=== PATIENT | female | born 1990 | race Hispanic/Latino ===

== ENCOUNTER 2018-05-29 10:26 | Emergency (ER) | payer MEDICAID, SELFPAY ==
[2018-05-29 10:55] LABS: Bilirubin Negative (Negative); Clarity CLEAR (Clear); Glucose, Urine (Dipstick) Negative (Negative); Leukocyte Small (Negative); Nitrite Negative (Negative); Protein, Urine (Dipstick) Negative (Neg-Trace); Specific Gravity, Urine 1.025 (1.002-1.036); Urobilinogen 0.2 mg/dL (0.2-1.0)
[2018-05-29 10:57] LABS: Bacteria/HPF Rare-Few HPF (None Seen); Hyaline Casts/LPF 0-3 HYALINE CAST LPF (0-3 Hyaline); Pathc Cast-AUWi Flag 0.29 (0-2.49)
[2018-05-29 11:09] LABS: #Basophils 0.1 thou/uL (0.0-0.2); #Eosinphils 0.1 thou/uL (0.0-0.7); #Lymphocytes 1.6 thou/uL (1.20-3.40); #Monocytes 0.7 thou/uL (0.11-0.59); #Neutrophils 9.6 thou/uL (1.40-6.50); %Basophils 0.5 % (0.0-1.0); %Eosinophils 0.5 % (0.0-10.0); %Lymphocytes 13.2 % (21.0-51.0); %Monocytes 5.5 % (0.0-10.0); %Neutrophils 80.4 % (42.0-75.0); Hemoglobin 13.3 g/dL (12.0-16.0); Mean Corpuscular Hemoglobin 31.6 pg (27.0-31.0); Mean Platelet Volume 8.3 fL (7.4-10.4); Platelet Count 230 thou/uL (130-400); RBC Distribution Width 11.6 % (11.5-14.5); Red Blood Cell (RBC) Count 4.21 mill/uL (4.20-5.40); White Blood Cell (WBC) Count 11.9 thou/uL (4.8-10.8)
[2018-05-29 11:12] LABS: RBC/HPF 0-3 HPF (0-3)
[2018-05-29 11:14] LABS: Blood, Urine Large (Negative)
--- NOTE | 2018-05-29 12:44 | ULT ---
ULTRASOUND PELVIC TRANSVAGINAL WITH DOPPLER: Date: 05/29/18 HISTORY: 8 weeks . Bright red vaginal bleeding. COMPARISON: None. [ TECHNIQUE: Real-time Clemons scale with color Doppler and spectral analysis of the pelvis was performed via transab dominal and transvaginal approach. FINDINGS: Uterus is retroflexed. Uterus measures 7.4 x 4.7 x 6.1 cm. Right ovary measures 2.5 x 2.2 x 1.9 cm. L eft ovary measures 2.6 x 1.7 x 1.4 cm. Prominent corpus luteum right ovary. Gestational sac is present, as well as a pole. Heart rate documented at just under 100 beats/mi nute. Small subchorionic hemorrhage. Trace free fluid. The average ultrasound age is 5 weeks/6 days, estimated date of delivery of 9. [place]-rump length is 0.21 cm. Gestational sac diameter is 1.06 cm. IMPRESSION: Single, viable intrauterine . Average ultrasound age of 5 weeks and 6 days. Estimated delive ry date is 01/23/19. Small subchorionic hemorrhage. POS: [facility]
[2018-05-31 20:01] LABS: Chlamydia by PCR Not Detected (NotDetected); GC by PCR Not Detected (NotDetected)
== END 2018-05-29 12:48 | disposition home or self-care (01) ==
LOC: ERS 10:26
DX: O20.0 Threatened abortion (principal); Z3A.08 8 weeks gestation of pregnancy
CPT/HCPCS: 76856; 81003; 81015; 84702; 85025; 86900; 86901; 87086; 87480; 87491; 87510; 87591; 87660

== ENCOUNTER 2019-05-05 23:04 | Day surgery (SDC) | payer OTHER ==
[2019-05-05 23:33] VITALS: BP 111/62; TEMP 98.4; BMI 32.6
[2019-05-05] MEDS ORDERED: hydrALAZINE 20 MG/ML VIAL SLOW IVP PRN (23:42)
--- NOTE | 2019-05-05 23:45 | PDOC.LDHP ---
Labor and Delivery H&P Chief complaint: other (N/V) HPI: Patient of Dr brandt Here for N/V, no VB 28 yo at 25 weeks with N/V. No CTX, no LOF, good FM Current gestational age (weeks): 25 (5 days) Dating criteria: last menstrual period Grav: 4 Para: 2 Current complications: none Abnormal US findings: No Current medications: pre- vitamins Previous surgical history: none Allergies/Adverse Reactions: Allergies Allergy/AdvReac Type Severity Reaction Status Date / Time No Known Allergies Allergy Unverified 05/05/19 23:24 - Physical Exam Vital signs reviewed and normal: yes General: NAD Heart: RRR Lungs: CTAB Abdomen: gravid Extremeties: no edema [place] contractions every: FHTS 140s, no CTX - Assessment N/V at 25 weeks, no SXS of labor, afebrile - Plan Plan: observation in L&D (Check CMP; IVFs, posible gastroenteritis)
[2019-05-05] MEDS ORDERED: Lactated Ringer's 1,000 ML IV SCH (23:59)
[2019-05-06 00:25] LABS: ALT (SGPT) 25 U/L (8-55); AST (SGOT) 35 U/L (5-34); Albumin 3.8 g/dL (3.5-5.0); Alkaline Phosphatase 99 U/L (40-150); Anion Gap 14 mmol/L (10-20); BUN (Urea Nitrogen) 8 mg/dL (7.0-18.7); Bilirubin, Total 0.4 mg/dL (0.2-1.2); Calc. Creatinine Clearance 169 mL/min (70-130); Calcium 8.8 mg/dL (7.8-10.44); Carbon Dioxide 19 mmol/L (22-29); Chloride 105 mmol/L (98-107); Estimated GFR-MDRD Greater than 90; Globulin 2.7 g/dL (2.4-3.5); Glucose 91 mg/dL (70-105); Potassium 3.6 mmol/L (3.5-5.1); Protein, Total 6.5 g/dL (6.0-8.3); Sodium 134 mmol/L (136-145)
== END 2019-05-06 01:00 | disposition home or self-care (01) ==
LOC: L&D/OP 23:04
PROVIDERS: ATTEND Obstetrics & Gynecology
DX: O99.89 Other specified diseases and conditions complicating pregnancy, childbirth and the puerperium (principal); R11.2 Nausea with vomiting, unspecified; Z3A.25 25 weeks gestation of pregnancy
CPT/HCPCS: 80053; 96360; 99282

== ENCOUNTER 2019-07-11 01:34 | Day surgery (SDC) | payer OTHER ==
[2019-07-11 02:01] VITALS: BP 112/59; TEMP 98.2; BMI 34.0
[2019-07-11] MEDS ORDERED: hydrALAZINE 20 MG/ML VIAL SLOW IVP PRN (02:41)
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
[2019-07-11] MEDS ORDERED: Acetaminophen 325 MG TAB PO SCH (04:30)
--- NOTE | 2019-07-11 08:15 | ULT ---
EXAM: US Biophysical Profile PROVIDED CLINICAL HISTORY: Fall COMPARISON: None FINDINGS: tone: 2/2 breathin/2 movements: 2/2 Amniotic fluid: 2/2 Total: 06/10 IMPRESSION: Normal biophysical profile.
--- NOTE | 2019-07-11 08:16 | ULT ---
PRELIMINARY REPORT/[facility]/EMERGENCY AFTER HOURS PROCEDURE: EXAM: US , Limited US Doppler Velocimetry of the Umbilical Artery EXAM DATE/TIME: 07/11/2019 3:38 AM CLINICAL HISTORY: 28 years old, female; Other: RT sided abd pain S/P fall; Gestational age or lmp: 35wks; TECHNIQUE: Imaging protocol: Real-time ultrasound of the maternal uterus with image documentation. Exam focused on the clinical indication. Real-time US Doppler velocimetry of the umbilical artery integrating B-mode two-dimensional vascular structure, Doppler spectral analysis and color flow Doppl er imaging. COMPARISON: No relevant prior studies available. FINDINGS: Single living intrauterine gestation in transverse presentation. heart rate: 153 bpm. AUA: 35w6 d. PAYAL(AUA): 08/09/2019. PAYAL(LMP): 08/12/2019. EFW: 2709g-52percentile. Visualized anatomy is unremarkable. Placenta is fundal posterior. DAVID: 20cm. Cervix is unremarkable. Umbilical artery S/D ratio is 2.4. Adequate diastolic flow is present. IMPRESSION: Single viable intrauterine . No acute findings. Thank you for allowing us to participate in the care of your patient. Dictated and Authenticated by: Luis Boggs MD 07/11/2019 6:58 AM Central Time ([place] & [place]) FINAL REPORT: EXAM: ULTRASOUND OB LIMITED: PROVIDED CLINICAL HISTORY: Fall. COMPARISON: None. FINDINGS: Single live intrauterine gestation as described in the preliminary report. biometry: BPD 35 weeks 5 days 8.84 cm Head circumference 37 weeks 1 day 32.7 cm Abdominal circumference 35 weeks 2 days 31.4 cm Femur length 35 weeks 3 days 6.9 cm IMPRESSION: Agree with the preliminary interpretation given by SAMANTHA. Transcribed Date/Time: 07/11/2019 9:25 AM
--- NOTE | 2019-07-11 08:18 | ULT ---
PRELIMINARY REPORT/[facility]/EMERGENCY AFTER HOURS PROCEDURE: EXAM: US Abdomen Limited, Right Upper Quadrant EXAM DATE/TIME: 07/11/2019 3:27 AM CLINICAL HISTORY: 28 years old, female; Pain; Other: RT sided abd S/P fall; TECHNIQUE: Imaging protocol: Real-time ultrasound of the abdomen with image documentation. Examination was focused on the right upper quadrant. COMPARISON: No relevant prior studies available. FINDINGS: Liver: No acute findings. No mass. Gallbladder: No acute findings. No gallstones. Common bile duct: Unremarkable. Pancreas: Limited visualization due to bowel gas. Visualized pancreas is unremarkable. Right kidney: Mild hydronephrosis. No mass. No free fluid. IMPRESSION: Mild right hydronephrosis. Thank you for allowing us to participate in the care of your patient. Dictated and Authenticated by: Luis Boggs MD 07/11/2019 6:40 AM Central Time ([place] & [place]) FINAL REPORT: RIGHT UPPER QUADRANT ULTRASOUND: PROVIDED CLINICAL HISTORY: Abdominal pain. COMPARISON: None. FINDINGS/IMPRESSION: Agree with the preliminary interpretation given by SAMANTHA. Transcribed Date/Time: 07/11/2019 9:19 AM
[2019-07-11] MEDS ORDERED: Lactated Ringer's 1,000 ML IV SCH (08:30)
== END 2019-07-11 08:35 | disposition home or self-care (01) ==
LOC: L&D/OP 01:34
PROVIDERS: ATTEND Obstetrics & Gynecology
DX: O26.893 Other specified pregnancy related conditions, third trimester (principal); R10.11 Right upper quadrant pain; O47.03 False labor before 37 completed weeks of gestation, third trimester; O99.89 Other specified diseases and conditions complicating pregnancy, childbirth and the puerperium; N13.30 Unspecified hydronephrosis; Z3A.35 35 weeks gestation of pregnancy; W19.XXXA Unspecified fall, initial encounter; Y04.0XXA Assault by unarmed brawl or fight, initial encounter
CPT/HCPCS: 59025; 76705; 76815; 76819; 96360; 96361; 99283

== ENCOUNTER 2019-08-06 19:15 | Inpatient (IN) | payer OTHER ==
[~2019-08-06 19:15] MED LIST: Bupivacaine 0.25% HCL 30 ML VIAL ONE
[2019-08-06] MEDS ORDERED: Ondansetron PF 4 MG/2 ML Vial IVP PRN (20:09)
[2019-08-06] MEDS ORDERED: HYDROcodone/Acetaminophen 5/325 mg Tablet PO PRN ×2 (20:09)
[2019-08-06] MEDS ORDERED: Diphenoxylate HCl/Atropine Tablet PO PRN ×2 (20:09)
[2019-08-06] MEDS ORDERED: Lidocaine 1% (PF) 30 ML VIAL SC PRN (20:09)
[2019-08-06] MEDS ORDERED: Acetaminophen 500 MG TAB PO PRN (20:09)
[2019-08-06] MEDS ORDERED: Methylergonovine 0.2 MG/ML VIAL IM PRN (20:09)
[2019-08-06] MEDS ORDERED: hydrALAZINE 20 MG/ML VIAL SLOW IVP PRN (20:09)
[2019-08-06] MEDS ORDERED: Carboprost 250 MCG/ML AMP IM PRN (20:09)
[2019-08-06] MEDS ORDERED: Promethazine HCl 25 MG/ML VIAL IM PRN (20:09)
[2019-08-06] MEDS ORDERED: Zolpidem Tartrate 5 MG TAB PO PRN (20:09)
[2019-08-06] MEDS ORDERED: NS / Oxytocin 40 units/1000ml 1,000 ML IV PRN (20:09)
[2019-08-06] MEDS ORDERED: Misoprostol 200 MCG TAB PR PRN (20:09)
[2019-08-06] MEDS ORDERED: Ibuprofen 800 MG TAB PO PRN (20:09)
[2019-08-06] MEDS ORDERED: NS w/ Oxytocin 10 units 500 ML IV SCH ×2 (20:15)
--- NOTE | 2019-08-06 20:16 | PDOC.LDHP ---
Labor and Delivery H&P Chief complaint: scheduled induction HPI: 28 y/o at 39 and 0/7 weeks for term elective induction of labor. Current gestational age (weeks): 39 Due date: 08/13/19 Grav: 4 Para: 2 Current complications: none Abnormal US findings: No Current medications: pre-anita vitamins Previous surgical history: none Allergies/Adverse Reactions: Allergies Allergy/AdvReac Type Severity Reaction Status Date / Time No Known Allergies Allergy Unverified 07/11/19 01:56 Social history: none - Physical Exam Vital signs reviewed and normal: yes General: NAD Heart: RRR Lungs: CTAB Abdomen: gravid Extremeties: no edema FHT: category 1 - Assessment L&D Assessment: elective induction at term - Plan Plan: admit to L&D, cervical ripening
[2019-08-06 20:26] VITALS: BMI 33.5
[2019-08-06] MEDS: Lactated Ringer's 1,000 ML IV SCH (20:30)
[2019-08-06 20:33] LABS: Hemoglobin 11.2 g/dL (12.0-16.0); Mean Corpuscular HGB CONC 33.2 g/dL (32.0-36.0); Mean Corpuscular Hemoglobin 28.9 pg (27.0-31.0); Mean Corpuscular Volume 86.8 fL (78.0-98.0); Mean Platelet Volume 10.9 fL (7.4-10.4); Platelet Count 211 thou/uL (130-400); RBC Distribution Width 13.2 % (11.5-14.5); Red Blood Cell (RBC) Count 3.86 mill/uL (4.20-5.40); White Blood Cell (WBC) Count 9.8 thou/uL (4.8-10.8)
[2019-08-06] MEDS: Misoprostol 100 MCG TAB VAG SCH ×2 (20:51→23:56)
[2019-08-06 21:12] LABS: Syphilis Antibody Nonreactive (Nonreactive); Syphilis Antibody Index 0.03 S/CO (<1.00 Non-Reactive)
[2019-08-06 22:48] LABS: Hep B Surf Ag Non-Reactive S/CO (NonReactive)
[2019-08-07] MEDS: Lactated Ringer's 1,000 ML IV SCH ×2 (02:28→16:52)
[2019-08-07] MEDS: Butorphanol Tartrate 1 MG/ML VIAL SLOW IVP PRN ×3 (02:28→09:26)
[2019-08-07] MEDS: Misoprostol 100 MCG TAB VAG SCH ×2 (04:40→16:51)
[2019-08-07] MEDS ORDERED: Fentanyl 4 mcg/Bup 0.1% Cadd 100 ML ONE (11:19)
[2019-08-07] MEDS ORDERED: Communication Order-Pharmacy FS SCH (13:00)
[2019-08-07] MEDS ORDERED: Ondansetron PF 4 MG/2 ML Vial IVP PRN ×2 (13:00→16:01)
[2019-08-07] MEDS ORDERED: diphenhydrAMINE 50 MG/ML VIAL IVP PRN (13:00)
[2019-08-07] MEDS ORDERED: Acetaminophen 325 MG TAB PO PRN (13:00)
[2019-08-07] MEDS ORDERED: Lactated Ringer's 500 ML IV PRN (13:00)
[2019-08-07] MEDS ORDERED: Promethazine HCl 25 MG/ML VIAL IM PRN ×2 (13:00→16:01)
[2019-08-07] MEDS ORDERED: Fentanyl 4 mcg/Bupivacaine 0.1% Cassette 100 ML EPIDURAL SCH (13:00)
[2019-08-07] MEDS ORDERED: ePHEDrine/0.9% NaCl/PF SYRINGE 50 mg/10 ml SLOW IVP PRN (13:00)
[2019-08-07] MEDS ORDERED: Naloxone HCl 0.4 mg/ml Vial IVP PRN ×2 (13:00)
[2019-08-07] MEDS ORDERED: NS / Oxytocin 40 units/1000ml 1,000 ML IV SCH (16:01)
[2019-08-07] MEDS ORDERED: Preparation H Ointment 28 GM TUBE PR PRN (16:01)
[2019-08-07] MEDS ORDERED: Zolpidem Tartrate 5 MG TAB PO PRN (16:01)
[2019-08-07] MEDS ORDERED: hydrALAZINE 20 MG/ML VIAL SLOW IVP PRN (16:01)
[2019-08-07] MEDS ORDERED: Bisacodyl 10 MG SUPP PR PRN (16:01)
[2019-08-07] MEDS ORDERED: Misoprostol 200 MCG TAB VAG PRN (16:01)
[2019-08-07] MEDS ORDERED: Methylergonovine 0.2 MG TAB PO PRN (16:01)
[2019-08-07] MEDS ORDERED: Milk Of Magnesia 30 ML UDCUP PO PRN (16:01)
[2019-08-07] MEDS ORDERED: Benzocaine-Menthol 82.5 ML CAN TOP PRN (16:01)
[2019-08-07] MEDS ORDERED: HYDROcodone/Acetaminophen 5/325 mg Tablet PO PRN ×2 (16:01)
[2019-08-07] MEDS ORDERED: diphenhydrAMINE 25 MG CAP PO PRN (16:01)
[2019-08-07] MEDS ORDERED: Lanolin Ointment 7 GM TUBE TOP PRN (16:01)
[2019-08-07] MEDS: Ibuprofen 800 MG TAB PO SCH ×2 (17:02→23:44)
[2019-08-07] MEDS: Ferrous Sulfate 325 MG TAB PO SCH (19:00)
[2019-08-07] MEDS: Docusate Calcium (SURFAK) 240 MG CAP PO SCH (20:39)
[2019-08-07] MEDS ORDERED: Varicella virus, LIVE 0.5 ML VIAL SC ONE (21:00)
[2019-08-07] MEDS ORDERED: Adacel (T-DAP) 0.5 ML SYRINGE IM ONE (21:00)
[2019-08-07] MEDS ORDERED: FLU VACC QS2019-20(6MOS UP)/PF 60 MCG/0.5 ML SYRINGE IM ONE (21:00)
[2019-08-07] MEDS ORDERED: Measles/Mumps/Rubella 10 MCG/0.5 ML VIAL SC ONE (21:00)
[2019-08-07] MEDS ORDERED: Sodium Chloride 0.9% 10 ML ONE (23:52)
[2019-08-08 00:07] VITALS: TEMP 97.6
--- NOTE | 2019-08-08 03:15 | PDOC.PP ---
Post Progress Note Post Day #: 1 PO intake tolerated: yes Flatus: yes Ambulation: yes Vital Signs (12 hours) Temp Pulse Resp BP Pulse Ox 08/08/19 00:25 70 92/46 L 08/07/19 23:55 97.6 F 75 18 97/45 L 08/07/19 20:30 98.6 F 74 20 106/53 L 98 08/07/19 17:10 98.3 F 59 L 12 110/61 08/07/19 16:20 98.6 F 65 20 111/60 100 Weight Weight 183 lb - Physical Examination General: NAD Cardiovascular: no m/r/g, RRR Respiratory: clear to auscultation bilaterally, non-labored breathing Abdominal: + bowel sounds, lochia, no distention Extremities: negative homans (B) Neurological: no gross focal deficits Psychiatric: A&Ox3, normal affect Result Diagrams: 08/06/19 20:17 Additional Labs: Post Labs Blood Type O POSITIVE 08/06/19 20:17 Hep Bs Antigen Non-Reactive S/CO (NonReactive) 08/06/19 20:17
[2019-08-08 05:04] LABS: Hemoglobin 10.5 g/dL (12.0-16.0); Mean Corpuscular HGB CONC 33.9 g/dL (32.0-36.0); Mean Corpuscular Hemoglobin 29.3 pg (27.0-31.0); Mean Corpuscular Volume 86.5 fL (78.0-98.0); Mean Platelet Volume 10.7 fL (7.4-10.4); Platelet Count 167 thou/uL (130-400); RBC Distribution Width 13.3 % (11.5-14.5); Red Blood Cell (RBC) Count 3.57 mill/uL (4.20-5.40); White Blood Cell (WBC) Count 9.5 thou/uL (4.8-10.8)
[2019-08-08] MEDS: Ferrous Sulfate 325 MG TAB PO SCH (07:35)
[2019-08-08] MEDS ORDERED: Prenatal Vitamin 1 TAB PO SCH (09:00)
--- NOTE | 2019-08-08 09:18 | DN ---
DATE OF PROCEDURE: 08/07/2019 TIME: 1341 hours Central Daylight Savings Time. PREOPERATIVE DIAGNOSIS: Intrauterine at 39 weeks and 1 day with a term induction of labor. POSTOPERATIVE DIAGNOSIS: Intrauterine at 39 weeks and 1 day with a term induction of labor. PROCEDURE PERFORMED: Spontaneous vaginal delivery over second-degree perineal laceration. FINDINGS: Viable male weighing 3112 g or 6 pounds 14 ounces. Apgars 9 and 10. QUANTITATIVE BLOOD LOSS: 160 mL. COMPLICATIONS: None. PROCEDURE IN DETAIL: The patient presented to [facility] where she was admitted to the labor and delivery service. The patient underwent a normal and uneventful labor with normal cervical dilatation until she was found to be completely dilated. She was then allowed to push and was able to bring the baby down and delivered the baby in a vertex presentation without difficulties. Once the head delivered in occiput anterior position, the shoulders followed spontaneously along with the rest of the baby's body. Once out the baby's mouth and nose were bulb suctioned. The cord was clamped and cut and baby was handed to waiting attendants. Cord blood was collected. Gentle fundal massage was performed and the placenta delivered intact without problems. Hemostasis was assured. Quantitative blood loss was calculated. Inspection of the cervix, vaginal vault, and perineum did not reveal any lacerations needing suturing. Once again, hemostasis was within normal limits and the patient was allowed to recover in the labor and delivery room. Baby went to nursery. Job ID: [id number]
[2019-08-08] MEDS: Ibuprofen 800 MG TAB PO SCH (09:38)
[2019-08-08] MEDS: Docusate Calcium (SURFAK) 240 MG CAP PO SCH (09:39)
[2019-08-08 12:30] VITALS: BP 97/55
[2019-08-08] MEDS ORDERED: FLU VACC QS2019-20(6MOS UP)/PF 60 MCG/0.5 ML SYRINGE IM ONE (23:59)
== END 2019-08-08 15:30 | disposition home or self-care (01) | DRG 807 ==
LOC: L&D 19:52 → 3SW 08-07 16:21
PROVIDERS: ADMIT Obstetrics & Gynecology; ATTEND Obstetrics & Gynecology
PROC: 10E0XZZ Delivery of Products of Conception, External Approach (ICD-10-PCS; principal; 2019-08-07)
PROC: 0KQM0ZZ Repair Perineum Muscle, Open Approach (ICD-10-PCS; 2019-08-07)
DX: O70.1 Second degree perineal laceration during delivery (principal); Z37.0 Single live birth; Z3A.39 39 weeks gestation of pregnancy
CPT/HCPCS: 36415; 85027; 86780; 86850; 86900; 86901; 87340; 90471; 90686; 90715; G0008; J0595; J2590; S0020

== ENCOUNTER 2019-12-01 10:00 | Emergency (ER) | payer OTHER ==
[2019-12-01 10:41] LABS: #Eosinphils 0.1 thou/uL (0.0-0.7); #Monocytes 0.5 thou/uL (0.11-0.59); #Neutrophils 4.1 thou/uL (1.40-6.50); %Basophils 0.6 % (0.0-1.0); %Eosinophils 1.1 % (0.0-10.0); %Monocytes 7.8 % (0.0-10.0); %Neutrophils 60.6 % (42.0-75.0); Mean Corpuscular HGB CONC 33.1 g/dL (32.0-36.0); Mean Corpuscular Hemoglobin 30.6 pg (27.0-31.0); Mean Corpuscular Volume 92.3 fL (78.0-98.0); Mean Platelet Volume 9.3 fL (7.4-10.4); Platelet Count 266 thou/uL (130-400); RBC Distribution Width 12.2 % (11.5-14.5); Red Blood Cell (RBC) Count 4.26 mill/uL (4.20-5.40); White Blood Cell (WBC) Count 6.8 thou/uL (4.8-10.8)
[2019-12-01 11:12] LABS: ALT (SGPT) 12 U/L (8-55); AST (SGOT) 17 U/L (5-34); Albumin 4.5 g/dL (3.5-5.0); Alkaline Phosphatase 72 U/L (40-110); Anion Gap 13 mmol/L (10-20); BUN (Urea Nitrogen) 11 mg/dL (7.0-18.7); Bilirubin, Total 0.5 mg/dL (0.2-1.2); Calc. Creatinine Clearance 0 mL/min (70-130); Calcium 9.4 mg/dL (7.8-10.44); Carbon Dioxide 24 mmol/L (22-29); Chloride 107 mmol/L (98-107); Estimated GFR-MDRD 89; Globulin 2.9 g/dL (2.4-3.5); Glucose 90 mg/dL (70-105); Potassium 3.8 mmol/L (3.5-5.1); Protein, Total 7.4 g/dL (6.0-8.3); Sodium 140 mmol/L (136-145)
--- NOTE | 2019-12-01 11:46 | ULT ---
TRANSABDOMINAL TRANSVAGINAL PELVIC ULTRASOUND DATE:: 12/01/2019 10:41 AM CLINICAL HISTORY: History of with active bleeding and passing clots. COMPARISON: Prior pelvic ultrasound dated May 29, 2018 TECHNIQUE: Grayscale, color Doppler and spectral Doppler images were obtained of the pelvis see a tra nsabdominal transvaginal approach Uterus: Size: 9.3 x 5.1 x 4.8 cm Mass: None Cervix: Within normal limits Endometrium: No intrauterine gestation is demonstrated. An irregular lobulated 1.5 cm fluid collectio n is seen within the central aspect of the endometrial canal. Ovaries: Size: right measures 1.6 x 1.7 x 3.7 cm cm; left measures 1.8 x 1.5 x 2.7 cm Mass: None. Flow: Normal Cul-de-sac: Minimal free fluid IMPRESSION: Findings consistent with a of undetermined location. No visible intrauterine gestation is d emonstrated. There is an irregular lobulated 1.5 cm fluid collection within the central aspect of the endometrial canal which may be related to intraluminal hemorrhage or an in progress. Wit h the available findings, early and ectopic cannot be entirely excluded. Continued clinical and sonographic follow-up is recommended.
== END 2019-12-01 13:09 | disposition home or self-care (01) ==
LOC: ERS 10:00
DX: O03.9 Complete or unspecified spontaneous abortion without complication (principal)
CPT/HCPCS: 36415; 76856; 80053; 84702; 85025; 86900; 86901; 88305

== ENCOUNTER 2020-12-08 11:45 | Outpatient (CLI) | payer OTHER ==
[2020-12-08 23:20] LABS: SARS-CoV-2 PCR by NAA Not Detected (NotDetected)
== END 2020-12-08 11:46 | disposition home or self-care (01) ==
LOC: LABBT 11:45
PROVIDERS: ATTEND Obstetrics & Gynecology
DX: Z01.812 Encounter for preprocedural laboratory examination (principal); Z20.822 Contact with and (suspected) exposure to COVID-19
CPT/HCPCS: 87635; U0003; U0005